=== PATIENT | female | born 1990 | race Caucasian/White ===

== ENCOUNTER 2022-04-03 15:14 | Outpatient (CLI) | payer OTHER, SELFPAY ==
[2022-04-03 19:33] LABS: Cholesterol* 159 mg/dL (90-199)
[2022-04-03 19:34] LABS: HDL Cholesterol* 55 mg/dL (>=50); LDL Cholesterol Calculated 93 mg/dL (<100); Triglycerides* 55 mg/dL (40-149)
== END 2022-04-03 15:15 | disposition home or self-care (01) ==
LOC: NFLDREF 15:15
PROVIDERS: PCP Obstetrics & Gynecology; Visit Provider Obstetrics & Gynecology
DX: Z13.6 Encounter for screening for cardiovascular disorders (principal)
CPT/HCPCS: 80061

== ENCOUNTER 2023-02-14 09:11 | Outpatient (CLI) | payer OTHER, SELFPAY ==
--- NOTE | 2023-02-14 09:15 | CRLHL7_ITS ---
For Patients: As a result of the Century Cures Act, medical imaging exams and procedure reports are released immediately into your electronic medical record. You may view this report before your referring provider. If you have questions, please contact your health care provider. Indication : Lumbar radiculopathy. TECHNIQUE: Sagittal and axial T1, sagittal axial T2 and sagittal STIR images were obtained. FINDINGS: Sagittal alignment lumbar spine is within normal limits. No compression fractures. No paraspinal or epidural mass or abnormal fluid collection. Lower lumbar spondylosis. The distal cord conus medullaris appear normal in morphology and signal intensity. The conus terminates normally at L1. No disc herniation or stenosis the T11-12, T12-L1, L1-2 or L2-3 levels. At L3-4 there is degenerative disc desiccation. Posterior annular tear. There is a moderate-sized left side caudal disc extrusion that extends well below the disc space behind the L4 vertebral body and compresses the left L4 nerve root (9 mm AP x 9 mm transverse x 20 mm cephalocaudal). The there is associated ventral thecal sac deformity without high-grade spinal canal stenosis. The neural foramen are adequately patent. At L4-5 there is degenerative disc desiccation there is posterior annular tear and small central annular bulge without stenosis of the spinal canal or neural foramen. At L5-S1 mild central disc desiccation no posterior disc herniation or stenosis the spinal canal or neural foramen. 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 Left-sided facet arthropathy. IMPRESSION: 1. Three level low lumbar disc degeneration. 2. Prominent left side L3-4 caudal disc extrusion extends well below the disc space, behind the L4 vertebral body and within the left lateral recess and compresses the left L4 nerve root. 3. At L4-5 shallow central annular bulge and annular tear without stenosis. 4. At L5-S1 mild disc degeneration and moderate left facet arthropathy. Dictated by Vasyl Rosales MD @ 02/14/2023 3:15:44 PM (Electronically Signed)
== END 2023-02-14 09:12 | disposition home or self-care (01) ==
LOC: MRI 09:11
PROVIDERS: PCP Obstetrics & Gynecology; Visit Provider Internal Medicine
DX: M54.16 Radiculopathy, lumbar region (principal); M51.26 Other intervertebral disc displacement, lumbar region; M51.37 Other intervertebral disc degeneration, lumbosacral region
CPT/HCPCS: 72148

== ENCOUNTER 2023-02-27 13:56 | Outpatient (CLI) | payer OTHER, SELFPAY | END 2023-02-27 13:57 | disposition home or self-care (01) | PROVIDERS: PCP Obstetrics & Gynecology; Visit Provider Family Medicine | DX: M54.16 Radiculopathy, lumbar region (principal); M51.26 Other intervertebral disc displacement, lumbar region | CPT/HCPCS: 64483; J1100; Q9966 ==

== ENCOUNTER 2025-01-07 11:22 | Emergency (ER) | payer OTHER, SELFPAY ==
--- NOTE | 2025-01-07 | CRLHL7_ITS ---
For Patients: As a result of the Century Cures Act, medical imaging exams and procedure reports are released immediately into your electronic medical record. You may view this report before your referring provider. If you have questions, please contact your health care provider. Indication: Mid chest pain Technique: Chest 1 view Comparison: None Findings/Impression: Cardiovascular and mediastinum: Heart size and vasculature are normal in caliber and appearance. Lungs and pleural space: Lungs are clear. No sign of infiltrate or mass. No sign of pleural effusion. No pneumothorax. Bones and soft tissues: No acute findings. Dictated by Manoj Roca MD @ 01/07/2025 12:28:05 PM (Electronically Signed)
--- OUTSIDE RECORDS SUMMARY | 2025-01-07 11:24 | XMS_ITS | Clinical Summary ---
Author Organization [facility] Address [address] [place] [id number] Care Team Providers Care Television Equipment Operator Name Role Phone Brandon Barroso MD Primary Care Provider [phone] Allergies Active Allergy Reactions Criticality Noted Date Comments Avocado Hives 02/26/2023 Cultivated Crop Pollen-[place] Hives 02/27/20 23 Medications gabapentin (NEURONTIN) 300 mg capsuleIndications :Lumbosacral radiculopathy at L4 Take 1 Capsule (300 mg) by mouth at bedtime. 30 Capsule 3 3 Active traMADoL (ULTRAM) 50 mg tabletIndications: Lumbar disc herniation,Lumbosa cral radiculopathy at L4,Acquired left foot drop,Left leg weakness Take 1 Tablet (50 mg) by mouth 3 times daily if needed for Pain. 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 Immunizations Immunization Administration Dates Next Due DT (Age < 7 years) 07/23/2000 DTaP 12/08/1993, 0,06/18/1989,04/16/1989, 02/01/1989 HIB PRP-OMP (PedvaxHIB) 08/15/1990 Hepatitis A (Adult) 01/28/2009,06/26/2008 Hepatitis B (Peds) 01/24/1999,08/09/1998, 998 Inactivated Polio Vaccine 12/08/1993,05/16/1990, 04/16/1989,02/01/1989 Influenza, IIV3 (Age >=3 years) 06/26/2008,04/28 MMR 07/23/2000,05/16/1990 Tdap 06/26/2008 Yellow Fever 06/26/2008 Family History Medical History Relation Name Comments Other Maternal Grandmother bunions Relation Name Status Comments Father Alive Maternal Grandmother Mother Alive Social History Tobacco Use Types Packs/Day Years Used Date Smoking Tobacco: Never Passive Smoke Exposure: Yes Smokeless Tobacco: Never Tobacco Cessation:Counseling Given: Yes Alcohol Use Standard Drinks/Week Comments No 0 (1 standard drink = 0.6 oz pur e alcohol) Social Connections Answer Date Recorded Frequency of Communication with Friends and Fami ly Not on file 02/26/2023 Comments No Sex and Gender Information Value Date Recorded Sex Assigned at Not on file 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 Gender Identity Not on file Sexual Orientation Not on file Obstetrics History Last Filed Vital Signs Vital Sign Reading Time Taken Comments Blood Pressure 111/74 04/11/2023 10:35 AM CDT Pulse 60 04/11/2023 10:35 AM CDT Temperature 36.6 C (97.9 F) 04/11/2023 10:35 AM CDT Respiratory Rate 18 03/23/2022 10:41 AM CDT Oxygen Saturation 100% 04/11/2023 10:35 AM CDT Inhaled Oxygen Concentration - - Weight 104.1 kg (229 lb 8 oz) 04/11/2023 10:35 A M CDT Height 170.2 cm (5' 7) 03/23/2022 10:41 AM CDT Body Mass Index 35.94 03/23/2022 10:41 AM CDT Plan of Treatment Health Maintenance Due Date Last Done Comments Depression screening for age 12+ 2000 HIV for age 15-65 12/26/2003 BMI (ht and wt on same day) for age 18+ 2006 Hepatitis C screening for age 18-79 2006 Tetanus booster 06/26/2018 06/26/2008 COVID-19 vaccine series ( season) 2024 08/28/2022, 04/05/2021, 12/22/2020 Influenza Vaccine (Season Ended) 2025 06/26/2008, 04/28/1999 Pap test for age 21-65 04/03/2025 2, 04/03/2022, 08/01/2019, Additional history exists Hepatitis B series for 19+ Completed 01/24, 08/09/1998, 07/05/1998 ([place]) Tdap Completed 06/26/2008 Pneumococcal series for age 6-49 Aged Out No longer eligible based on patient's age to complete this topic Procedures Procedure Name Priority Date/Time Associated Diagnosis Comments HPV HIGH RISK Routine 04/03/2022 3:00 PM CDT from Last 3 Months or Most Recently Relevant to Health Maintenance Results * HPV HIGH RISK (04/03/2022 3:00 PM CDT) TYPE 16 Negative Negative 04/07/2022 2:01 PM CDT [facility] TYPE 18 Negative Negative 04/07/2022 2:01 PM CDT [facility] OTHER HIGH RISK TYPES Negative Negative 04/07/2022 2:01 PM CDT [facility] Other (Cervical) 04/03/2022 3:00 PM CDT 04/05/2022 9:02 AM CDT Narrative [facility] - 04/07/2022 2:01 PM CDT HPV types 16, 18, 31, 33, 35, 39, 45, 51, 52, 56, 58, 59, 66 and 68 DNA were undetectable or below the pre-set threshold. Methodology: Sharee Forrest 4800 HPV Test us Tamia Pierre MD MICROBIOLOGY Final Resu lt [facility] [address] [place] [address], [place] from Last 3 Months or Most Recently Relevant to Health Maintenance Insurance MEDICA CHOICE * Guarantor: Maira Vaz Account Type Relation to Patient Date of Phone Billing Address Personal/Family Self 1990 [facility] [id number], [place] [address] Care Teams Television Equipment Operator Relationship Specialty Start Date End Date Brandon [place] [address] PCP - General 11/16/05
[2025-01-07 11:27] VITALS: BP 141/69; PULSE 68; RESP 16; TEMP 36.9; O2SAT 99; BMI 38.2
--- NOTE | 2025-01-07 11:34 | ED_ITS ---
HPI - General Adult General Chief complaint: Chest Pain Stated complaint: jaw, back and throat pain Time Seen by Provider: 01/07/25 11:34 History of Present Illness HPI narrative: Pt reports sudden onset of jaw/neck/back/ chest pain 30 mins ago (1100) . Was at work at [employer] and was advised by RNs there to be evaluated in ER right away as they were concerned you might be having a heart attack. 34-year-old woman presenting to the emergency department with concern of sudden onset of mid chest bilateral jaw neck and back pain starting about 30 minutes ago. No radiation to the legs. No abdominal pain. Does not struggle with heartburn. Not recall an injury. 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 Can hurt to swallow sometimes. Was otherwise in usual state of health. Later though conversation does turn to the amount of stress she has been experiencing in her life around managing her ex- and his affect on her family. Sounds like it may be escalating lately. Lives very close to mother who accompanies her here today. They are wondering if this might be contributing to the chest discomfort she is having here today. Related Data Home Medications ?Medication ?Instructions ?Recorded ?Confirmed No Known Home Medications 04/03/22 04/10/30 Allergies Allergy/AdvReac Type Severity Reaction Status Date / Time Avocado Allergy Intermediate Difficulty Uncoded 10/11/23 10:15 Breathing [place] starch Allergy Intermediate Hives Uncoded 10/11/23 10:15 [place]-related Products Allergy Intermediate Hives Uncoded 10/11/23 10:15 [place] oil Allergy Hives Uncoded 10/11/23 10:15 Review of Systems Status of ROS: Reports: 6 or more systems reviewed and unremarkable except as noted in History and below [facility] Medical History Lumbar radiculopathy ?M54.16 - Radiculopathy, lumbar region (ICD-10) History of varicella ?Z86.19 - Personal history of other infectious and parasitic diseases (ICD- 10) History of vaginal delivery History of depression ?Z87.59 - Personal history of other complications of , childbirth and the puerperium (ICD-10) ?Z86.59 - Personal history of other mental and behavioral disorders (ICD-10) History of menorrhagia ?Z87.42 - Personal history of other diseases of the female genital tract (ICD-10) Surgical History History of third molar tooth extraction (2003) ?K08.409 - Partial loss of teeth, unspecified cause, unspecified class (ICD- 10) History of bunionectomy of both great toes (2005) ?Z98.890 - Other specified postprocedural states (ICD-10) Family History Aunt Breast cancer Maternal Grandfather Stroke Maternal Grandmother Coronary artery disease Colon cancer Social History Narrative: WINDOWS DESKTOP ENGINEER Smoking Status: Former smoker How often do you have a drink containing alcohol: never AUDIT-C Alcohol total score: 0 Non-prescribed substance use: denies use Do you think of yourself as: straight/heterosexual Gender Identity: female Are you currently sexually active: Yes In the past 12 months, how many sex partners have you had: one Exam Narrative: Exam Narrative: Pleasant. Does appear mildly uncomfortable. Breathing easily. Lungs are clear. Heart in regular rate and rhythm without murmur rub or gallop. Pain to palpation of the mid sternum up through the upper chest the paraspinal musculature between the shoulder blades. Sore to palpation over the sternocleidomastoids. Neck actually supple. Oropharynx is unremarkable. Const: Vital Signs, click to edit/add: Vital Signs - 24 hr 01/07/25 11:27 01/07/25 13:19 Temperature 98.5 F 98.6 F Pulse Rate [Pulse Oximeter] 68 63 Respiratory Rate 16 18 Blood Pressure [Ri ght Upper Arm] 141/69 H 112/57 L Pulse Oximetry 99 100 Oxygen Delivery Me thod Room Air Room Air Documenting provider has reviewed patient's vital signs: yes Course Vital Signs Vital signs: Initial Vital Signs Temperature 98.5 F 01/07/25 11:27 Temperature Source Temporal Artery Scan 01/07/25 11:27 Pulse Rate 68 01/07/25 11:27 Respiratory Rate 16 01/07/25 11:27 Blood Pressure 141/69 H 01/07/25 11:27 Blood Pressure Mean 93 01/07/25 11:27 Blood Pressure Position Sitting 01/07/25 11:27 Pulse Oximetry 99 01/07/25 11:27 Oxygen Delivery Method Room Air 01/07/25 11:27 Vital Signs Temperature 98.5 F 01/07/25 11:27 Pulse Rate 68 01/07/25 11:27 Respiratory Rate 16 01/07/25 11:27 Blood Pressure 141/69 H 01/07/25 11:27 Pulse Oximetry 99 01/07/25 11:27 Oxygen Delivery Method Room Air 01/07/25 11:27 Temperature 98.6 F 01/07/25 13:19 Pulse Rate 63 01/07/25 13:19 Respiratory Rate 18 01/07/25 13:19 Blood Pressure 112/57 L 01/07/25 13:19 Pulse Oximetry 100 01/07/25 13:19 Oxygen Delivery Method Room Air 01/07/25 13:19 Medications Administered Medications: Discontinued Medications Generic Name Dose Route Start Last Admin Trade Name Ralph PRN Reason Stop Dose Admin Ketorolac Tromethamine 15 mg 01/07/25 11:46 01/07/25 12:09 Ketorolac 15 Mg/Ml Inj IVP 01/07/25 11:47 15 mg ONCE ONE Administration Lorazepam 1 mg 01/07/25 13:27 01/07/25 13:34 Lorazepam 1 Mg Tablet PO 01/07/25 13:28 1 mg ONCE ONE Administration Medical Decision Making MDM Narrative Medical decision making narrative: Has reproducible chest pain with pain to palpation of various muscle groups. Likely with some spasm. Unusual constellation of symptoms timing. No cardiac risk factors identified here in conversation. No family history of connective tissue disorder. I think unlikely to have ischemic cardiovascular event. At worse would be perhaps a dissection but I think unlikely to be reproducible. Costochondritis is in differential. Does not recall any palpitations; perhaps some arrhythmia could have contributed to this response. Exam is I think inconsistent with pulmonary embolus as well. Will do standard evaluation for chest pain. Monitor on debt and budget counselor. She would appreciate something for pain. Initiated IV though given ketorolac One-view chest x-ray independently reviewed by me is WNL. Mild improvement on reassessment. This is more when this conversation of stress is brought up. Mom is wondering if there might be something available for home use as well. Did than give a dose of lorazepam in the emergency department. Overall improved during time in the ER with reassuring labs. No events on monitor. See patient discharge plan for further discussion The reproducibility of your chest pain suggests musculoskeletal origin. Consider taking up to 400 mg of ibuprofen 3 times daily over the next 4-5 days or alternatively up to 375 mg of naproxen twice daily over the same time period. I understand you been dealing with a lot of stress and that might be playing a role as well. As discussed I am prescribing lorazepam from [facility] for temporary use. Giving the muscle soreness in the area have included some stretches for the upper back that might be helpful. Lab Data Lab results reviewed: Yes I reviewed the patient's lab results Labs: Lab Results 01/07/25 01/07/25 01/07/25 Range/Units 11:46 12:15 13:27 WBC 6.56 (4.50-11.00) K/uL RBC 4.22 (4.00-5.20) m/uL Hgb 12.5 (12.0-16.0) gm/dL Hct 38.1 (33.0-51.0) % MCV 90 (80-100) fL MCH 30 (26-34) pg MCHC 33 (32-36) gm/dL RDW Coeff of [place] 12.6 (11.5-15.5) % Plt Count 273 (140-440) K/uL Neut % (Auto) 59.5 (42.0-72.0) % Lymph % (Auto) 29.7 (20-44) % [place] % (Auto) 7.9 (0.0-11.0) % Eos % (Auto) 2.3 (0.0-7.0) % Baso % (Auto) 0.6 (0.0-3.0) % Neut # (Auto) 3.90 (1.7-7.0) K/uL Lymph # (Auto) 1.95 (0.90-2.90) K/uL [place] # (Auto) 0.50 (0.00-0.90) K/UL Eos # (Auto) 0.15 (0.00-0.50) K/uL Baso # (Auto) 0.04 (0.00-0.30) K/uL Abs Immat Gran (auto) 0.00 (0.00-0.30) K/uL Imm/Tot Granulo (auto) 0.0 % D-Dimer Quant (PE/DVT) 0.31 (0.00-0.50) ug/ml Sodium 142 (135-149) mmol/L Potassium 3.7 (3.6-5.1) mmol/L Chloride 108 (96-114) mmol/L Carbon Dioxide 27 (20-32) mmol/L Anion Gap 7 (7-15) mEq/L BUN 16 (5-24) mg/dL Creatinine 1.1 (0.5-1.5) mg/dL Estimated Creat Clear 68.76 Estimated GFR 67 ml/min Glucose 87 (60-115) mg/dL Calcium 9.1 (8.4-10.6) mg/dL Troponin I < 0.01 (0.01-0.04) ng/mL C-Reactive Protein < 0.5 L (0.5-1.0) mg/dL NT-Pro-B Natriuret Pep 158 (See Note) pg/mL Lab Acknowledgement Test Added POC Troponin I 0.02 0.00 L (0.01-0.04) ng/ml ECG Data Attestation: I personally reviewed and interpreted this ECG as follows: (normal sinus rhythm at 62 without ischemic changes) Discharge Plan Discharge Clinical Impression: Atypical chest pain Patient Disposition: Home w/ Parent or Adult Condition: Improved Additional Instructions: The reproducibility of your chest pain suggests musculoskeletal origin. Consider taking up to 400 mg of ibuprofen 3 times daily over the next 4-5 days or alternatively up to 375 mg of naproxen twice daily over the same time period. I understand you been dealing with a lot of stress and that might be playing a role as well. As discussed I am prescribing lorazepam from [facility] for temporary use. Giving the muscle soreness in the area have included some stretches for the upper back that might be helpful. Prescriptions: No Action No Known Home Medications Follow Up/Referrals: Tamia Pierre MD [Primary Care Provider, PEDIATRICS HOSPITALIST] Stand Alone Forms: [facility] Info Instructions
[2025-01-07 12:26] LABS: Hematocrit 38.1 % (33.0-51.0); Hemoglobin* 12.5 gm/dL (12.0-16.0); Immature Granulocytes Abs Auto 0.00 K/uL (0.00-0.30); Immature Granulocytes Pct Auto 0.0 %; Lymphocytes Absolute Auto 1.95 K/uL (0.90-2.90); Mean Corpuscular HGB Conc 33 gm/dL (32-36); Mean Corpuscular Hemoglobin 30 pg (26-34); Mean Corpuscular Volume 90 fL (80-100); RDW Coefficient of Variation % 12.6 % (11.5-15.5); Red Blood Count 4.22 m/uL (4.00-5.20); White Blood Count* 6.56 K/uL (4.50-11.00)
[2025-01-07 12:28] LABS: Slide Review Reflex No
[2025-01-07 12:40] LABS: Troponin, Point-of-Care* 0.02 ng/ml (0.01-0.04)
[2025-01-07 12:40] LABS: Chloride* 108 mmol/L (96-114); Sodium* 142 mmol/L (135-149)
[2025-01-07 12:41] LABS: Potassium* 3.7 mmol/L (3.6-5.1)
[2025-01-07 12:44] LABS: Anion Gap 7 mEq/L (7-15); Blood Urea Nitrogen* 16 mg/dL (5-24); Calcium* 9.1 mg/dL (8.4-10.6); Carbon Dioxide* 27 mmol/L (20-32); Creatinine* 1.1 mg/dL (0.5-1.5); Est. Creatinine Clearance* 68.76; Estimated Glomerular Filt Rate 67 ml/min; Glucose* 87 mg/dL (60-115)
[2025-01-07 12:52] LABS: D Dimer Quantitative* 0.31 ug/ml (0.00-0.50)
[2025-01-07 13:10] LABS: NT Pro B Type NatriureticPept* 158 pg/mL (See Note)
[2025-01-07 13:19] VITALS: BP 112/57; PULSE 63; RESP 18; TEMP 37; O2SAT 100
[2025-01-07 13:54] LABS: Troponin, Point-of-Care* 0.00 ng/ml (0.01-0.04)
== END 2025-01-07 14:54 | disposition home or self-care (01) ==
PROVIDERS: Emergency Provider Family Medicine; PCP Obstetrics & Gynecology
DX: R07.89 Other chest pain (principal); R68.84 Jaw pain; M54.9 Dorsalgia, unspecified; F43.9 Reaction to severe stress, unspecified
CPT/HCPCS: 36415; 71045; 80048; 83880; 84484; 85025; 85379; 86140; 93005; 96374; 99284; 99285; A9270; J1885

== ENCOUNTER 2025-01-18 16:15 | Outpatient (CLI) | payer SELFPAY | END 2025-01-18 16:16 | disposition home or self-care (01) | LOC: AMB 01-19 16:43 | PROVIDERS: PCP Obstetrics & Gynecology; Visit Provider Family Medicine | DX: R55 Syncope and collapse (principal) | CPT/HCPCS: A0998 ==